=== PATIENT | male | born 1995 | race Native Hawaiian/Other Pacific Islander ===

== ENCOUNTER 2019-05-27 03:16 | Emergency (ER) | payer OTHER ==
[2019-05-27 03:27] VITALS: BP 130/91
--- NOTE | 2019-05-27 04:44 | XRay Report ---
PROCEDURE: XR SHOULDER 2+V RT HISTORY: right shoulder pain FINDINGS: AP views of the right shoulder were acquired in internal and external rotation and demonstr ate no fracture or malalignment of the right shoulder. There is no subacromial spur. IMPRESSION: No fracture is seen in the right shoulder This document is electronically signed by Nixon Morales MD., May 27 2019 04:42:48 AM ET
[2019-05-27] MEDS ORDERED: BOOSTRIX IM ONE (05:25)
[2019-05-27] MEDS ORDERED: ANTIBIOTIC OINT TP STA (05:25)
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
== END 2019-05-27 06:29 | disposition home or self-care (01) ==
LOC: ED 03:16
DX: T23.361A Burn of third degree of back of right hand, initial encounter (principal); M25.511 Pain in right shoulder; I10 Essential (primary) hypertension; F17.200 Nicotine dependence, unspecified, uncomplicated; Z79.899 Other long term (current) drug therapy; V28.9XXA Unspecified motorcycle rider injured in noncollision transport accident in traffic accident, initial encounter; Y93.89 Activity, other specified; Y92.828 Other wilderness area as the place of occurrence of the external cause; Y99.8 Other external cause status
CPT/HCPCS: 99283